=== PATIENT | female | born 1965 | race Two or more races ===

== ENCOUNTER 2022-06-02 11:45 | Inpatient (IN) | payer OTHER ==
[~2022-06-02] VITALS: Ht 162.6 cm; Wt 54.9 kg
[2022-06-02] MEDS ORDERED: [UNRECOGNIZED DRUG - OTHER] PO (13:30)
[2022-06-04] MEDS ORDERED: DEXAMETHASO4 MG/1 M1 (13:23)
[2022-06-04] MEDS ORDERED: FAMOTIDINE20 MG/2 M1 (13:23)
[2022-06-04] MEDS ORDERED: SPRYCEL70 MG (13:23)
[2022-06-04] MEDS ORDERED: ATORVASTATIN CA20 MG (13:23)
[2022-06-04] MEDS ORDERED: DIPHENHYDR50 MG/1 M1 (13:23)
[2022-06-04] MEDS ORDERED: FAMOTIDINE20 MG (13:23)
[2022-06-04] MEDS ORDERED: LETROZOLE2.5 MG (13:23)
== END 2022-06-07 15:35 | disposition home or self-care (01) | DRG 742 ==
LOC: O/R 06-03 07:38 → SURG 06-03 08:30
PROVIDERS: ADMIT Specialist; ATTEND Specialist
PROC: 0UT70ZZ Resection of Bilateral Fallopian Tubes, Open Approach (ICD-10-PCS; 2022-06-03)
PROC: 0UT20ZZ Resection of Bilateral Ovaries, Open Approach (ICD-10-PCS; 2022-06-03)
PROC: 0DNW0ZZ Release Peritoneum, Open Approach (ICD-10-PCS; 2022-06-03)
PROC: 3E1M38Z Irrigation of Peritoneal Cavity using Irrigating Substance, Percutaneous Approach (ICD-10-PCS; 2022-06-03)
PROC: 0UT90ZZ Resection of Uterus, Open Approach (ICD-10-PCS; principal; 2022-06-03 08:30)
PROC: 30233N1 Transfusion of Nonautologous Red Blood Cells into Peripheral Vein, Percutaneous Approach (ICD-10-PCS; 2022-06-05)
DX: D25.1 Intramural leiomyoma of uterus (principal); D62 Acute posthemorrhagic anemia; N83.291 Other ovarian cyst, right side; N83.292 Other ovarian cyst, left side; Z20.822 Contact with and (suspected) exposure to COVID-19